=== PATIENT | female | born 1975 ===

== ENCOUNTER 2022-02-18 07:43 | Outpatient (CLI) | payer BC, SELFPAY ==
--- NOTE | ~2022-02-18 | MR_ITS ---
EXAMINATION: MR lumbar spine wo con DATE: 02/18/2022 08:23 INDICATION: Lumbar radiculopathy TECHNIQUE: Magnetic resonance imaging (MRI) of the lumbar spine was performed without intravenous con trast. Sequences included sagittal T2-weighted FSE, sagittal T2-weighted FS FSE, sagittal T1-weighted FSE, and axial T2-weighted FSE. COMPARISON: None FINDINGS: Alignment is normal. Vertebral body heights are normal. Normal marrow signal. Mild disc height loss at L3-L4, L4-L5 and L5-S1. Annular fissures at both L4-L5 and L5-S1. The conus medullaris terminates at the level of the superior endplate of L1. There is normal signal in the caudal spinal cord. Parave rtebral soft tissues are unremarkable. The following disc levels are specifically discussed: T12-L1: The disc does not extend beyond the endplate margin. There is mild to moderate left and moder ate right facet joint osteoarthritis. There is no neural foraminal stenosis. There is no central holly l stenosis. L1-L2: The disc does not extend beyond the endplate margin. There is mild to moderate bilateral facet joint osteoarthritis. There is no neural foraminal stenosis. There is no central canal stenosis. L2-L3: The disc does not extend beyond the endplate margin. There is moderate bilateral facet joint o steoarthritis. There is a large osteophyte arising from the left superior articular process of L3. Th ere is mild right and moderate left neural foraminal stenosis. There is no central canal stenosis. L3-L4: Disc is bulging. There is moderate left and moderate to severe right facet joint osteoarthriti s. There is mild bilateral neural foraminal stenosis. There is mild central canal stenosis. L4-L5: Disc is bulging with annular fissure. There is moderate left and mild to moderate right facet joint osteoarthritis. There is mild right and mild to moderate left neural foraminal stenosis. There is mild central canal stenosis. L5-S1: Disc is mildly bulging with superimposed annular fissure and small left paracentral disc extru ba with disc material extending a couple millimeters cephalad and caudal to the level of the endpla paola and mildly narrowing the left lateral recess with mild mass effect upon the traversing left S1 ne rve root. There is right and moderate to severe left facet joint osteoarthritis. There is mild right and mild to moderate left neural foraminal stenosis. There is no central canal stenosis. IMPRESSION: 1. Mild lumbar spondylosis. Reviewed, dictated and finalized at location A. IMPRESSION: 1. Mild lumbar spondylosis.
== END 2022-02-18 07:44 ==
LOC: MICIMG 07:48
DX: M47.26 Other spondylosis with radiculopathy, lumbar region (principal)
CPT/HCPCS: 72148